=== PATIENT | female | born 1955 | race Two or more races ===

== ENCOUNTER 2018-06-20 17:41 | Emergency (ER) | payer SELFPAY ==
[~2018-06-20] VITALS: Ht 157.5 cm; Wt 92.1 kg
[2018-06-20 17:49] VITALS: BP 168/87
[2018-06-20] MEDS ORDERED: KETOROLAC TROMETH 60MG/2ML VIAL IM ONE (23:15)
== END 2018-06-20 23:34 | disposition home or self-care (01) ==
LOC: EDBD 17:41 → ER 17:47
DX: S13.9XXA Sprain of joints and ligaments of unspecified parts of neck, initial encounter (principal); E11.9 Type 2 diabetes mellitus without complications; I10 Essential (primary) hypertension; V43.62XA Car passenger injured in collision with other type car in traffic accident, initial encounter; Y93.89 Activity, other specified; Y99.8 Other external cause status; Y92.410 Unspecified street and highway as the place of occurrence of the external cause
CPT/HCPCS: 71046; 71250; 72040; 73502; 74176; 93005; 96372; 99284; J1885

== ENCOUNTER 2025-03-28 10:23 | Inpatient (IN) | payer MEDICAID ==
[~2025-03-28] VITALS: Ht 165.1 cm; Wt 86.7 kg
--- NOTE | 2025-03-28 10:51 | ED.PDOC ---
Erwin. trauma (HPI) HPI Comments 69 y/o F, OSITOA, presents to the ED for CC of s/p fall. EMS reports, patient is coming from home where she c/o right sided ankle, knee, and hip pain following a fall last night (03/27/25). Patient states, she was walking on wet floor when she slipped landing on he right side. Patient denies hitting her head, LOC, svetlana sea, or vomiting. No other symptoms or modifying factors present at this time. Chief Complaint: Lower Extremity Time Seen by MD: 10:45 Primary Care Provider: PATRICIA Reviewed notes: Nurses Notes, Medications, Allergies Allergies: Coded Allergies: NO KNOWN ALLERGIES (Unverified , 06/20/18) Information Source: Patient Mode of Arrival: EMS Severity: Moderate Timing: Hours Duration: Since onset Prehospital treatment: None Location: (R) Ankle, (R) Hip Location of laceration: None Mechanism: Fall Associated signs and symtoms: None Past Medical History PAST MEDICAL HISTORY: DM, HTN Surgical History: Denies all surgeries CELL LINER History: No Pertinent CELL LINER History Family History Family History: Unknown Social History Smoker: Non-Smoker Alcohol: Denies ETOH Use Drugs: Denies Drug Use Lives In: Home Constitutional: denies: chills, diaphoresis, fatigue, fever, malaise, sweats, weakness, others EENTM: denies: blurred vision, double vision, ear bleeding, ear discharge, ear drainage, ear pain, ear ringing, eye pain, eye redness, hearing loss, mouth pain, mouth swelling, nasal discharge, nose bleeding, nose congestion, nose pain, photophobia, tearing, throat pain, throat swelling, voice changes, others Respiratory: denies: cough, hemoptysis, orthopnea, SOB at rest, shortness of breath, SOB with excertion, stridor, wheezing, others Cardiovascular: denies: chest pain, dizzy spells, diaphoresis, Dyspnea on exertion, edema, irregular heart beat, left arm pain, lightheadedness, palpitations, PND, syncope, others Gastrointestinal: denies: abdomen distended, abdominal pain, blood streaked bowels, constipated, diarrhea, dysphagia, difficulty swallowing, hematemesis, melena, nausea, poor appetite, poor fluid intake, rectal bleeding, rectal pain, vomiting, others Genitourinary: denies: abnormal vagina bleeding, burning, dyspareunia, dysuria, flank pain, frequency, hematuria, incontinence, pain, , vagina discharge, urgency, others Neurological: denies: dizziness, fainting, headache, left sided numbness, left sided weakness, numbness, paresthesia, pre-existing deficit, right sided numbness, right sided weakness, seizure, speech problems, tingling, tremors, weakness, others Musculoskeletal: reports: others (right ankle, right knee, right hip pain); denies: back pain, gout, joint pain, joint swelling, muscle pain, muscle stiffness, neck pain Integumetry: denies: bruises, change in color, change in hair/nails, dryness, laceration, lesions, lumps, rash, wounds, others Allergic/Immunocompromised: denies: Difficulty Healing, Frequent Infections, Hives, Itching, others Hematologic/Lymphatic: denies: anemia, blood clots, easy bleeding, easy bruising, swollen glands, others Endocrine: denies: excessive hunger, excessive sweating, excessive thirst, excessive urination, flushing, intolerance to cold, intolerance to heat, unexplained weight gain, unexplained weight loss, others Psychiatric: denies: anxiety, bipolar disorder, depression, hopeless, panic disorder, schizophrenia, sleepless, suicidal, others All Other Systems: Reviewed and Negative Physical Exam General Appearance: Moderate Distress HEENT: Normal ENT Inspection, Pharynx Normal, TMs Normal Neck: Full Range of Motion, Non-Tender, Normal, Normal Inspection Respiratory: Chest Non-Tender, Lungs Clear, No Accessory Muscle Use, No Respiratory Distress, Normal Breath Sounds Cardiovascular: No Edema, No JVD, No Murmur, No Gallop, Normal Peripheral Pulses, Regular Rate/Rhythm Breast Exam: Deferred Gastrointestinal: No Organomegaly, Non Tender, No Pulsatile Mass, Normal Bowel Sounds, Soft Genitalia: Deferred Pelvic: Deferred Rectal: Deferred Extremities: Decreased range of motion Musculoskeletal : Apperance: Normal Neurologic: Alert, No Motor Deficits, No Sensory Deficits Cerebellar Function: NOT DONE Reflexes: NOT DONE Skin: Normal Color Peripheral Pulses: 3+ Radial (R), 3+ Radial (L) Lymphatic: No Adenopathy Was a procedure done? Was a procedure done?: No Differential Diagnosis Multiple Trauma: Fractures, Abrasions, Contusion Neck Injury: N/A X-Ray, Labs, Meds, VS Vital Signs Date Time Temp Pulse Resp B/P (MAP) Pulse Ox O2 Delivery O2 Flow Rate FiO2 03/28/25 10:30 98.6 78 22 169/76 (107) 98 98.6 Lab Test 03/28/25 11:52 Range/Units White Blood Count 11.0 H 4.4-10.8 10^3/uL Red Blood Count 4.88 4.0-5.20 10^6/uL Hemoglobin 14.1 12.2-16.2 g/dL Hematocrit 42.8 36.0-46.0 % Mean Corpuscular Volume 87.7 80.0-100.0 fL Mean Corpuscular Hemoglobin 28.8 28.0-32.0 pg Mean Corpuscular Hemoglobin Concent 32.8 32.0-36.0 g/dL Red Cell Distribution Width 13.5 11.8-14.3 % Platelet Count 303 140-450 10^3/uL Mean Platelet Volume 9.9 6.9-10.8 fL Neutrophils (%) (Auto) 70.6 37.0-80.0 % Lymphocytes (%) (Auto) 20.1 10.0-50.0 % Monocytes (%) (Auto) 6.7 0.0-12.0 % Eosinophils (%) (Auto) 1.7 0.0-7.0 % Basophils (%) (Auto) 0.9 0.0-2.0 % Neutrophils # (Auto) 7.8 1.6-8.6 10 ^3/uL Lymphocytes # (Auto) 2.2 0.4-5.4 10 ^3/uL Monocytes # (Auto) 0.7 0-1.3 10 ^3/uL Eosinophils # (Auto) 0.2 0-0.8 10 ^3/uL Basophils # (Auto) 0.1 0-0.2 10 ^3/uL Nucleated Red Blood Cells 0.0 % Sodium Level 139 136-145 mmol/L Potassium Level 3.9 3.5-5.1 mmol/L Chloride Level 104 98-107 mmol/L Carbon Dioxide Level 28 20-31 mmol/L Anion Gap 7 5-15 Blood Urea Nitrogen 15 9-23 mg/dL Creatinine 0.62 0.550-1.02 mg/dL Glomerular Filtration Rate Calc 98 >90 mL/min BUN/Creatinine Ratio 24.2 H 10.0-20.0 Serum Glucose 333 H 74-106 mg/dL Calcium Level 9.6 8.7-10.4 mg/dL Patient alert. Unable to bear weight. Status post fall. Vitals stable. Blood sugar elevated. Establish intravenous access. Was given fluids. Explained to the patient that she will be admitted. Physiotherapy. Continue monitoring. Time of 1ST Reevaluation: 11:15 Reevaluation 1ST: Unchanged Patient Education/Counseling: Diagnosis, Treatment Family Education/Counseling: No Family Present Departure 1 Departure Time of Disposition: 13:51 Impression: Primary Impression: Uncontrolled diabetes mellitus Qualified Codes: E13.65 - Other specified diabetes mellitus with hyperglycemia Additional Impression: Status post fall Disposition: ADMITTED INPATIENT Admit to: Med Surg Condition: Guarded Critical Care Note Critical Care Time?: No Stability Stability form required: No Heart Score Heart Score: Heart Score Response (Comments) Value History N/A 0 EKG N/A 0 Age N/A 0 Risk Factors N/A 0 Troponin N/A 0 Total 0 I personally scribed for MASON SIDDIQI MD ([email or web address]) on 03/28/25 at 10:51. Electronically submitted by Karen Aleman ([email or web address]). MASON SIDDIQI MD Mar 28, 2025 10:51
--- NOTE | 2025-03-28 11:57 | DVH ---
CLINICAL INDICATION: Trauma TECHNIQUE: 2 radiographic views of the left ankle were obtained. Comparison: None FINDINGS/IMPRESSION: Mildly displaced fracture of the distal fibula. Soft tissue swelling about the left ankle.
[2025-03-28 12:02] LABS: Hematocrit 42.8 % (36.0-46.0); Hemoglobin 14.1 g/dL (12.2-16.2); Mean Corpuscular Hemoglobin 28.8 pg (28.0-32.0); Mean Corpuscular Volume 87.7 fL (80.0-100.0); Nucleated Red Blood Cells % 0.0 %
[2025-03-28 12:10] LABS: Chloride 104 mmol/L (98-107); Potassium 3.9 mmol/L (3.5-5.1); Sodium 139 mmol/L (136-145)
[2025-03-28 12:11] LABS: Anion Gap 7 (5-15); Carbon Dioxide 28 mmol/L (20-31)
[2025-03-28 12:12] LABS: Calcium 9.6 mg/dL (8.7-10.4)
[2025-03-28 12:17] LABS: BUN/Creatinine Ratio 24.2 (10.0-20.0); Blood Urea Nitrogen 15 mg/dL (9-23); Glucose 333 mg/dL (74-106)
--- NOTE | 2025-03-28 15:25 | DVHHP2 ---
History of Present Illness Reason for Visit: Right ankle pain History of Present Illness 69-year-old female past medical history diabetes hypertension no surgical history chief complaint patient states she last CC for and landed on her right side now she complain of right ankle pain right knee pain and right hip pain. Patient was not able bear weight. She denies she denies any chest pain no no shortness a breath calf pain or leg swelling. Patient denies any dizziness prior to the fall here when evaluating patient's labs and imaging patient has a white count 11.0 glucose was elevated at 333 without DKA x-ray shows mildly displaced fracture of the distal tib fib. With these findings we will admit and ask for ortho evaluation her also add x-ray pending knee and hip the evaluate for fracture. We will admit for further workup Past Medical History Diabetes hypertension Past Surgical History Surgical history denies Family History Reviewed, non-contributory to the management of this case. Past Social History The patient lives at home, denies smoking, alcohol or illicit drugs abuse. Review of Systems Constitutional: No: Fever, Chills, Sweats, Weakness, Malaise, Other Eyes: No: Pain, Vision change, Conjunctivae inflammation, Eyelid inflammation, Other, Redness ENT: No: Ear pain, Ear discharge, Nose pain, Nose discharge, Nose congestion, Mouth pain, Mouth swelling, Throat pain, Throat swelling, Other Respiratory: No: Cough, Dry, Shortness of breath, SOB with excertion, Wheezing, Hemoptysis, Pleuritic Pain, Sputum, Wheezing, Other Cardiovascular: No: Chest Pain, Palpitations, Orthopnea, Paroxysmal Noc. Dyspnea, Edema, Lt Headedness, Other Gastrointestinal: No: Nausea, Vomiting, Abdominal Pain, Diarrhea, Constipation, Melena, Hematochezia, Other Genitourinary: No Dysuria, No Frequency, No Incontinence, No Hematuria, No Retention, No Other Musculoskeletal: other (Right hip pain and right knee pain), leg pain Skin: No: Rash, Lesions, Jaundice, Bruising, Other Neurological: No: Weakness, Numbness, Incoordination, Change in speech, Confusion, Seizures, Other Allergies: Coded Allergies: NO KNOWN ALLERGIES (Unverified , 06/20/18) Exam Vital Signs Vital Signs Date Time Temp Pulse Resp B/P (MAP) Pulse Ox O2 Delivery O2 Flow Rate FiO2 6/26/25 10:30 98.6 78 22 169/76 (107) 98 98.6 General Appearance: Alert, Oriented X3, Cooperative, No acute distress HEENT: Atraumatic, PERRLA, EOMI, Mucous membr. moist/pink Respiratory: Clear to auscultation, Normal air movement Cardiovascular: Regular rate, Normal S1, Normal S2, No murmurs Abdominal: Normal bowel sounds, Soft, No tenderness, No hepatospenomegaly, No masses Extremities: No clubbing, No cyanosis, Normal pulses, Other (Right lower extremity in his splint toes he is supposed mild swelling since toes but neurovascular intact positive wiggle no bruising noted in the knee or the hip limited exam patient is in his wheelchair) Skin: No rashes, No breakdown, No significant lesion Neuro: Other (Neuro nonfocal) Psych/Mental Status: Mental status NL, Mood NL Labs/Xrays X-ray mildly displaced fracture of the distal tib-fib I reviewed labs, imaging CT scan abdomen pelvis, EKG and all diagnostic studies on this patient from ED records and the medical chart Labs Test 03/28/25 11:52 Range/Units White Blood Count 11.0 H 4.4-10.8 10^3/uL Red Blood Count 4.88 4.0-5.20 10^6/uL Hemoglobin 14.1 12.2-16.2 g/dL Hematocrit 42.8 36.0-46.0 % Mean Corpuscular Volume 87.7 80.0-100.0 fL Mean Corpuscular Hemoglobin 28.8 28.0-32.0 pg Mean Corpuscular Hemoglobin Concent 32.8 32.0-36.0 g/dL Red Cell Distribution Width 13.5 11.8-14.3 % Platelet Count 303 140-450 10^3/uL Mean Platelet Volume 9.9 6.9-10.8 fL Neutrophils (%) (Auto) 70.6 37.0-80.0 % Lymphocytes (%) (Auto) 20.1 10.0-50.0 % Monocytes (%) (Auto) 6.7 0.0-12.0 % Eosinophils (%) (Auto) 1.7 0.0-7.0 % Basophils (%) (Auto) 0.9 0.0-2.0 % Neutrophils # (Auto) 7.8 1.6-8.6 10 ^3/uL Lymphocytes # (Auto) 2.2 0.4-5.4 10 ^3/uL Monocytes # (Auto) 0.7 0-1.3 10 ^3/uL Eosinophils # (Auto) 0.2 0-0.8 10 ^3/uL Basophils # (Auto) 0.1 0-0.2 10 ^3/uL Nucleated Red Blood Cells 0.0 % Sodium Level 139 136-145 mmol/L Potassium Level 3.9 3.5-5.1 mmol/L Chloride Level 104 98-107 mmol/L Carbon Dioxide Level 28 20-31 mmol/L Anion Gap 7 5-15 Blood Urea Nitrogen 15 9-23 mg/dL Creatinine 0.62 0.550-1.02 mg/dL Glomerular Filtration Rate Calc 98 >90 mL/min BUN/Creatinine Ratio 24.2 H 10.0-20.0 Serum Glucose 333 H 74-106 mg/dL Calcium Level 9.6 8.7-10.4 mg/dL Assessment/Plan Assessment/Plan s/p mechanical fall acute mildly displaced fracture of distal fib closed found on imaging Ortho consult follow-up recs ordered Morphine as needed for pain bed rest ordered lovenox for now since bed ridden Monitor for circulation compromise fall precautions cxr for preop clearance and ekg ordered type and screen and pt/inr for pre op Order x-ray of the right knee and hip follow up results chronic problems Uncontrolled benign essential hypertension dm ISS fen/ppx diet for now ivf no gi ppx since no hx of gerds or gi bleed lovenox for now scd plan admit to medicine ortho consult fu recs Plan discussed with: Patient Date of Service: Mar 28, 2025 Billing Provider: ROSALIE ANDRADE DNP Common Visit Codes: [id number] INP/OBS CARE (HIGH) ROSALIE ANDRADE DNP Mar 28, 2025 15:25
[2025-03-28] MEDS ORDERED: NITROGLYCERIN 0.4 MG SL TAB SL PRN (15:45)
[2025-03-28] MEDS: SODIUM CHLORIDE 0.9% 1,000 ML IV ONE (18:39)
[2025-03-28 18:45] VITALS: PULSE 95; RESP 15; O2SAT 97
[2025-03-28 19:30] VITALS: O2SAT 97
[2025-03-28] MEDS: SODIUM CHLORIDE 0.9% 1,000 ML IV SCH (19:39)
[2025-03-28] MEDS: ONDANSETRON HCL 4 MG/2 ML VIAL IV PRN (21:11)
[2025-03-28] MEDS: MORPHINE SULFATE INJ 2 MG/ml SYRG IV PRN (21:12)
--- NOTE | 2025-03-28 21:33 | DVH ---
CLINICAL INDICATION: eval for fx and dislocation TECHNIQUE: XY R HIP COMPLETE XRAY Comparison: None FINDINGS/IMPRESSION: : There is no evidence of acute fracture or dislocation. Moderate degenerative narrowing of the bilateral hips. Overlying soft tissues are intact. Visualized bowel gas is nonobstructed.
[2025-03-28] MEDS: HYDROcodone-ACET 5/325MG TAB ONE (22:37)
[2025-03-28] MEDS: HYDROcodone-ACET 5/325MG TAB PO PRN (22:46)
[2025-03-28] MEDS: MORPHINE SULFATE INJ 2 MG/ml SYRG IV ONE (23:00)
[2025-03-28] MEDS: MORPHINE SULFATE INJ 2 MG/ml SYRG ONE (23:05)
[2025-03-28 23:21] VITALS: PULSE 73; RESP 17; O2SAT 95
[2025-03-28 23:28] VITALS: BP 174/78; PULSE 25; PULSE 73; RESP 17; TEMP 98.6; O2SAT 73; O2SAT 95
[2025-03-28 23:47] VITALS: BP 174/78; PULSE 76; RESP 18; TEMP 98.6; O2SAT 97
[2025-03-29] VITALS (7 sets, daily range): BP systolic 131–181; BP diastolic 69–87; PULSE 80–96; RESP 17–20; TEMP 98.5–100; O2SAT 93–95
[2025-03-29 00:32] LABS: Urine Protein, UAD Negative (Negative)
[2025-03-29] MEDS: hydrALAZINE HCL 20 MG/ML VL IV PRN (01:21)
[2025-03-29] MEDS: hydrALAZINE HCL 20 MG/ML VL ONE (01:34)
[2025-03-29 07:26] LABS: Hematocrit 43.0 % (36.0-46.0); Hemoglobin 14.3 g/dL (12.2-16.2); Mean Corpuscular Hemoglobin 29.2 pg (28.0-32.0); Mean Corpuscular Volume 87.7 fL (80.0-100.0); Nucleated Red Blood Cells % 0.0 %
[2025-03-29 07:43] LABS: Alanine Aminotransferase 20 U/L (7-40); Albumin 3.8 g/dL (3.2-4.8); Anion Gap 9 (5-15); BUN/Creatinine Ratio 20.8 (10.0-20.0); Blood Urea Nitrogen 11 mg/dL (9-23); Calcium 9.0 mg/dL (8.7-10.4); Carbon Dioxide 24 mmol/L (20-31); Chloride 104 mmol/L (98-107); Potassium 3.7 mmol/L (3.5-5.1); Sodium 137 mmol/L (136-145); Total Protein 6.4 g/dL (5.7-8.2)
[2025-03-29 07:44] LABS: Bilirubin, Total 0.6 mg/dL (0.2-1.0)
[2025-03-29 07:46] LABS: Alkaline Phosphatase 171 U/L (46-116); Glucose 292 mg/dL (74-106)
[2025-03-29] MEDS: ENOXAPARIN SOD 40 MG/0.4 ML SYRINGE SC SCH (09:01)
[2025-03-29 10:36] LABS: Hepatitis B Surface Antigen Negative (Negative); Hepatitis C Antibody Negative (Negative)
[2025-03-29] MEDS ORDERED: ACETAMINOPHEN 325 MG TAB PO PRN (17:30)
--- NOTE | 2025-03-29 17:35 | DVHPN2 ---
Reviewed: Care Plan, H&P, Labs, Medications, Previous Orders, Radiology Changes from previous H/P or p: No Changes General: Per HPI Eyes: No Pain, No Vision change, No Conjunctivae inflammation, No Eyelid inflammation, No Other, No Redness ENT: No Ear pain, No Ear discharge, No Nose pain, No Nose discharge, No Nose congestion, No Mouth pain, No Mouth swelling, No Throat pain, No Throat swelling, No Other Cardiovascular: No Chest Pain, No Palpitations, No Orthopnea, No Paroxysmal Noc. Dyspnea, No Edema, No Lt Headedness, No Other Respiratory: No Cough, No Dry, No Shortness of breath, No SOB with excertion, No Wheezing, No Hemoptysis, No Pleuritic Pain, No Sputum, No Other Gastrointestinal: No Nausea, No Vomiting, No Abdominal Pain, No Diarrhea, No Constipation, No Melena, No Hematochezia, No Other Genitourinary: No Dysuria, No Frequency, No Incontinence, No Hematuria, No Retention, No Other Musculoskeletal: other (Right hip pain and right knee pain), leg pain Skin: No Rash, No Lesions, No Jaundice, No Bruising, No Other Objective Vitals Vital Signs Date Time Temp Pulse Resp B/P (MAP) Pulse Ox O2 Delivery O2 Flow Rate FiO2 03/29/25 17:00 100.0 96 19 178/87 (117) 94 100.0 03/29/25 08:00 Room Air* 0 21 Intake/Output Intake and Output 03/29/25 07:00 Intake Total 1410 ml Output Total 800 ml Balance 610 ml Intake Oral 200 ml IV Total 1210 ml Output Urine Total 800 ml General Appearance: Alert, Oriented X3, Cooperative, No acute distress HEENT: Atraumatic Cardiovascular: Regular rate, Normal S1, Normal S2 Abdomen: Normal bowel sounds, Soft Neuro: Normal speech Medications Current Medications Medications Dose Ordered Sig/Jose Route Start Time Stop Time Status Last Admin Dose Admin Sodium Chloride 1,000 ml @ 70 mls/hr [id number] IV 03/28/25 15:45 03/28/25 19:39 70 MLS/HR Ondansetron HCl 4 mg Q4HP PRN IV 03/28/25 15:45 03/28/25 21:11 4 MG Docusate Sodium 100 mg BIDPRN PRN PO 03/28/25 15:45 Enoxaparin Sodium 40 mg DAILY SC 03/29/25 10:00 03/29/25 09:01 40 MG Nitroglycerin 0.4 mg Q5MINP PRN SL 03/28/25 15:45 Acetaminophen/ Hydrocodone Bitart 1 tab Q6HPRN PRN PO 03/28/25 22:30 03/29/25 10:07 1 TAB Hydralazine HCl 10 mg Q6HP PRN IV 03/29/25 01:00 03/29/25 01:21 10 MG Acetaminophen 650 mg Q6HP PRN PO 03/29/25 17:30 UNV Hydromorphone HCl 0.5 mg Q2HPRN PRN IV 03/29/25 17:30 UNV Morphine Sulfate 2 mg Q4HPRN PRN IV 03/29/25 17:30 UNV Laboratory Results Laboratory Tests 03/29/25 06:56 Chemistry Test 03/29/25 06:56 Albumin 3.8 g/dL (3.2-4.8) Calcium Level 9.0 mg/dL (8.7-10.4) Total Protein 6.4 g/dL (5.7-8.2) LFT Test 03/29/25 06:56 Alanine Aminotransferase (ALT) 20 U/L (7-40) Alkaline Phosphatase 171 U/L (46-116) H Aspartate Amino Transferase (AST) 15 U/L (<34) Total Bilirubin 0.6 mg/dL (0.2-1.0) Urinalysis Test 03/28/25 21:00 Urine Color Colorless (Yellow) Urine Clarity Clear (Clear) Urine pH 6.5 (5.0-9.0) Urine Specific [place] 1.020 (1.001-1.035) Urine Protein Negative (Negative) Urine Ketones Trace (Negative) H Urine Blood Negative /uL (Negative) Urine Nitrite 2+ (Negative) H Urine Bilirubin Negative (Negative) Urine Urobilinogen Normal mg/dL (Negative) Urine Leukocyte Esterase Negative /uL (Negative) Urine RBC 1 /hpf (0 - 4) Urine Microscopic WBC 1 /HPF (0-5) Urine Squamous Epithelial Cells None seen /hpf (<5) Urine Bacteria Mod /hpf (None Seen) H Urine Hyaline Casts Few /lpf (0 - 2) Urine Glucose 4+ mg/dL (Normal) H Labs and/or images reviewed: Labs reviewed by me, Image(s) reviewed by me Assessment/Plan Assessment/Plan 69-year-old female past medical history diabetes hypertension no surgical history chief complaint patient states she last CC for and landed on her right side now she complain of right ankle pain right knee pain and right hip pain. Patient was not able bear weight. She denies she denies any chest pain no no shortness a breath calf pain or leg swelling. s/p mechanical fall acute mildly displaced fracture of distal fib closed Uncontrolled benign essential hypertension dm pending PT eval and SNF Plan discussed with: Patient My Orders Orders - CHI CAMPUZANO DO Procedure Category Date Status Time Acetaminophen Tablet PHA 03/29/25 Logged (Tylenol Tablet) 17:30 Hydromorphone PHA 03/29/25 Logged Injection (Dilaudid 17:30 Morphine Sulfate PHA 03/29/25 Logged Injection 17:30 Date of Service: Mar 29, 2025 Billing Provider: CHI CAMPUZANO DO Common Visit Codes: [id number] INP/OBS CARE(HIGH) CHI CAMPUZANO DO Mar 29, 2025 17:35
[2025-03-29] MEDS: MORPHINE SULFATE INJ 2 MG/ml SYRG IV PRN (20:10)
[2025-03-30] VITALS (8 sets, daily range): BP systolic 136–177; BP diastolic 70–91; PULSE 90–99; RESP 16–20; TEMP 97.3–99.9; O2SAT 93–95
[2025-03-30] MEDS: HYDROmorphone HCL 2 MG/ML VL/or syr IV PRN ×2 (00:33→18:25)
[2025-03-30] MEDS: cefTRIAXone 1GM/50ML D5W 50 ML IV SCH (08:59)
[2025-03-30] MEDS ORDERED: MORPHINE SULFATE INJ 2 MG/ml SYRG IV PRN (13:00)
[2025-03-30] MEDS ORDERED: ACETAMINOPHEN 325 MG TAB PO PRN (13:00)
[2025-03-30] MEDS: OXYCODONE W/ ACETAMINOPHEN 5/325MG TABLET PO PRN (13:24)
[2025-03-30] MEDS ORDERED: TIRZ5INJ SC (13:48)
[2025-03-30] MEDS ORDERED: IBUP-1456 PO (13:48)
[2025-03-30] MEDS ORDERED: AMLO1TAB22 PO (13:48)
[2025-03-30] MEDS ORDERED: LISI10TA34 PO (13:48)
[2025-03-30] MEDS ORDERED: INDA2.5T PO (13:48)
--- NOTE | 2025-03-30 15:21 | DVH ---
CLINICAL INDICATION: Right knee pain TECHNIQUE: XY R KNEE 2V XRAY Comparison: None FINDINGS/IMPRESSION: : There is no evidence of acute fracture or dislocation. There is slight lateral subluxation of the proximal tibia relative to the femur likely degenerative. There is mild tricompartment osteoarthritis with tricompartment osteophyte formation. Joint spaces p reserved. There is medial and lateral compartment chondrocalcinosis. Suprapatellar knee joint effusion.
[2025-03-31] VITALS (7 sets, daily range): BP systolic 132–163; BP diastolic 68–89; PULSE 85–107; RESP 16–20; TEMP 97.5–99.6; O2SAT 93–97
[2025-04-01] VITALS (7 sets, daily range): BP systolic 110–162; BP diastolic 66–77; PULSE 79–112; RESP 16–18; TEMP 97.6–100.2; O2SAT 94–99
--- NOTE | 2025-04-01 07:09 | DVHINCON2 ---
Date of service: Apr 01, 2025 Reason for Consultation Right distal fibula fracture History of Present Illness 69 yo F sp mechanical fall with twisting injury at right ankle. Immediate pain/ swelling/inability to bear weight on right leg. No cp/sob/abd pain. hx of uncontrolled DM Past Medical History Diabetes hypertension Family History: Diabetes mellitus G8 MOTHER FH: heart attack G8 FATHER High blood pressure G8 MOTHER Allergies: Coded Allergies: NO KNOWN ALLERGIES (Unverified , 06/20/18) Home Meds Reported Medications Amlodipine Besylate (Amlodipine Besylate) 5 Mg Tab, 10 MG PO DAILY for 30 Days, MG 03/30/25 Indapamide (Indapamide) 2.5 Mg Tab, 2.5 MG PO AC, TAB 03/30/25 Lisinopril (Lisinopril) 10 Mg Tab, 10 MG PO DAILY for 30 Days, MG 03/30/25 Ibuprofen (Ibuprofen) 800 Mg Tab, 800 MG PO Q8HP, MG 03/30/25 Tirzepatide (Mounjaro) 5 Mg/0.5 Ml Inj, 5 MG SC, INJ 03/30/25 Review of Systems 10 point ROS is neg except per HPI Vital Signs Vital Signs Date Time Temp Pulse Resp B/P (MAP) Pulse Ox O2 Delivery O2 Flow Rate FiO2 04/01/25 05:00 97.6 80 18 110/66 (81) 95 97.6 03/31/25 20:00 Room Air* 0 21 Physical Exam NAD RLE: +swelling at ankle +ehl/fhl foot wwp Labs/Diagnostic Data Labs Test 03/29/25 06:56 03/28/25 21:00 Range/Units White Blood Count 13.2 H 4.4-10.8 10^3/uL Red Blood Count 4.90 4.0-5.20 10^6/uL Hemoglobin 14.3 12.2-16.2 g/dL Hematocrit 43.0 36.0-46.0 % Mean Corpuscular Volume 87.7 80.0-100.0 fL Mean Corpuscular Hemoglobin 29.2 28.0-32.0 pg Mean Corpuscular Hemoglobin Concent 33.3 32.0-36.0 g/dL Red Cell Distribution Width 13.6 11.8-14.3 % Platelet Count 274 140-450 10^3/uL Mean Platelet Volume 10.3 6.9-10.8 fL Neutrophils (%) (Auto) 78.1 37.0-80.0 % Lymphocytes (%) (Auto) 14.6 10.0-50.0 % Monocytes (%) (Auto) 6.5 0.0-12.0 % Eosinophils (%) (Auto) 0.3 0.0-7.0 % Basophils (%) (Auto) 0.5 0.0-2.0 % Neutrophils # (Auto) 10.3 H 1.6-8.6 10 ^3/uL Lymphocytes # (Auto) 1.9 0.4-5.4 10 ^3/uL Monocytes # (Auto) 0.9 0-1.3 10 ^3/uL Eosinophils # (Auto) 0 0-0.8 10 ^3/uL Basophils # (Auto) 0.1 0-0.2 10 ^3/uL Nucleated Red Blood Cells 0.0 % Sodium Level 137 136-145 mmol/L Potassium Level 3.7 3.5-5.1 mmol/L Chloride Level 104 98-107 mmol/L Carbon Dioxide Level 24 20-31 mmol/L Anion Gap 9 5-15 Blood Urea Nitrogen 11 9-23 mg/dL Creatinine 0.53 L 0.550-1.02 mg/dL Glomerular Filtration Rate Calc 101 >90 mL/min BUN/Creatinine Ratio 20.8 H 10.0-20.0 Serum Glucose 292 H 74-106 mg/dL Calcium Level 9.0 8.7-10.4 mg/dL Total Bilirubin 0.6 0.2-1.0 mg/dL Aspartate Amino Transferase (AST) 15 <34 U/L Alanine Aminotransferase (ALT) 20 7-40 U/L Alkaline Phosphatase 171 H 46-116 U/L Total Protein 6.4 5.7-8.2 g/dL Albumin 3.8 3.2-4.8 g/dL Hepatitis B Surface Antigen Negative Negative Hepatitis C Antibody Negative Negative Urine Color Colorless Yellow Urine Clarity Clear Clear Urine pH 6.5 5.0-9.0 Urine Specific [place] 1.020 1.001-1.035 Urine Protein Negative Negative Urine Ketones Trace H Negative Urine Blood Negative Negative /uL Urine Nitrite 2+ H Negative Urine Bilirubin Negative Negative Urine Urobilinogen Normal Negative mg/dL Urine Leukocyte Esterase Negative Negative /uL Urine RBC 1 0 - 4 /hpf Urine Microscopic WBC 1 0-5 /HPF Urine Squamous Epithelial Cells None seen <5 /hpf Urine Bacteria Mod H None Seen /hpf Urine Hyaline Casts Few 0 - 2 /lpf Urine Glucose 4+ H Normal mg/dL Plan/Recommendation 69 yo F with right distal fibula fracture 1. We can continue with protected weight bearing and conservative management 2. Right leg splint x 1-2 weeks 3. fu in [facility] ortho clinic in 1-2 weeks for cast placement 4. pain control 5. NWB RLE 6. physical therapy Plan discussed with: Patient, Other CARMEN WHITE MD Apr 01, 2025 07:09
--- NOTE | 2025-04-01 14:40 | DVHPN2 ---
Reviewed: Care Plan, H&P, Labs, Medications, Previous Orders, Radiology Changes from previous H/P or p: No Changes General: Per HPI Eyes: No Pain, No Vision change, No Conjunctivae inflammation, No Eyelid inflammation, No Other, No Redness ENT: No Ear pain, No Ear discharge, No Nose pain, No Nose discharge, No Nose congestion, No Mouth pain, No Mouth swelling, No Throat pain, No Throat swelling, No Other Cardiovascular: No Chest Pain, No Palpitations, No Orthopnea, No Paroxysmal Noc. Dyspnea, No Edema, No Lt Headedness, No Other Respiratory: No Cough, No Dry, No Shortness of breath, No SOB with excertion, No Wheezing, No Hemoptysis, No Pleuritic Pain, No Sputum, No Other Gastrointestinal: No Nausea, No Vomiting, No Abdominal Pain, No Diarrhea, No Constipation, No Melena, No Hematochezia, No Other Genitourinary: No Dysuria, No Frequency, No Incontinence, No Hematuria, No Retention, No Other Musculoskeletal: other (Right hip pain and right knee pain), leg pain Skin: No Rash, No Lesions, No Jaundice, No Bruising, No Other Objective Vitals Vital Signs Date Time Temp Pulse Resp B/P (MAP) Pulse Ox O2 Delivery O2 Flow Rate FiO2 04/01/25 12:42 88 18 156/84 04/01/25 08:00 Room Air* 0 21 04/01/25 05:00 97.6 95 97.6 Intake/Output Intake and Output 04/01/25 07:00 Intake Total 1020 ml Output Total 900 ml Balance 120 ml Intake Oral 970 ml IV Total 50 ml Output Urine Total 900 ml # Voids 5 General Appearance: Alert, Oriented X3, Cooperative, No acute distress HEENT: Atraumatic Cardiovascular: Regular rate, Normal S1, Normal S2 Abdomen: Normal bowel sounds, Soft Neuro: Normal speech Medications Current Medications Medications Dose Ordered Sig/Jose Route Start Time Stop Time Status Last Admin Dose Admin Sodium Chloride 1,000 ml @ 70 mls/hr [id number] IV 03/28/25 15:45 04/01/25 05:11 70 MLS/HR Ondansetron HCl 4 mg Q4HP PRN IV 03/28/25 15:45 03/29/25 20:07 4 MG Docusate Sodium 100 mg BIDPRN PRN PO 03/28/25 15:45 Enoxaparin Sodium 40 mg DAILY SC 03/29/25 10:00 04/01/25 07:59 40 MG Nitroglycerin 0.4 mg Q5MINP PRN SL 03/28/25 15:45 Hydralazine HCl 10 mg Q6HP PRN IV 03/29/25 01:00 04/01/25 09:39 10 MG Ceftriaxone Sodium 50 ml @ 100 mls/hr DAILY@09 IV 03/30/25 09:00 04/01/25 07:59 100 MLS/HR Hydromorphone HCl 1 mg Q2HPRN PRN IV 03/30/25 13:00 04/01/25 12:42 1 MG Morphine Sulfate 4 mg Q4HPRN PRN IV 03/30/25 13:00 Oxycodone/ Acetaminophen 2 tab Q8HP PRN PO 03/30/25 13:00 04/01/25 10:21 2 TAB Acetaminophen 650 mg Q6HP PRN PO 03/30/25 13:00 Laboratory Results Laboratory Tests 03/29/25 06:56 Urinalysis Test 03/28/25 21:00 Urine Color Colorless (Yellow) Urine Clarity Clear (Clear) Urine pH 6.5 (5.0-9.0) Urine Specific [place] 1.020 (1.001-1.035) Urine Protein Negative (Negative) Urine Ketones Trace (Negative) H Urine Blood Negative /uL (Negative) Urine Nitrite 2+ (Negative) H Urine Bilirubin Negative (Negative) Urine Urobilinogen Normal mg/dL (Negative) Urine Leukocyte Esterase Negative /uL (Negative) Urine RBC 1 /hpf (0 - 4) Urine Microscopic WBC 1 /HPF (0-5) Urine Squamous Epithelial Cells None seen /hpf (<5) Urine Bacteria Mod /hpf (None Seen) H Urine Hyaline Casts Few /lpf (0 - 2) Urine Glucose 4+ mg/dL (Normal) H Assessment/Plan Assessment/Plan 69-year-old female past medical history diabetes hypertension no surgical history chief complaint patient states she last CC for and landed on her right side now she complain of right ankle pain right knee pain and right hip pain. Patient was not able bear weight. She denies she denies any chest pain no no shortness a breath calf pain or leg swelling. s/p mechanical fall acute mildly displaced fracture of distal fib closed Uncontrolled benign essential hypertension dm pending PT eval and SNF Plan discussed with: Patient My Orders Orders - CHI CAMPUZANO DO Procedure Category Date Status Time Glucose Blood PHA 04/01/25 Transmitted (Accu-Chek Comfort 18:00 Moderate Insulin Ss PHA 04/01/25 Transmitted 18:00 Dextrose 50% Syringe PHA 04/01/25 Transmitted 14:45 Date of Service: Mar 30, 2025 Billing Provider: CHI CAMPUZANO DO Common Visit Codes: [id number] INP/OBS CARE(HIGH) CHI CAMPUZANO DO Apr 01, 2025 14:40
--- NOTE | 2025-04-01 14:41 | DVHPN2 ---
Reviewed: Care Plan, H&P, Labs, Medications, Previous Orders, Radiology Changes from previous H/P or p: No Changes General: Per HPI Eyes: No Pain, No Vision change, No Conjunctivae inflammation, No Eyelid inflammation, No Other, No Redness ENT: No Ear pain, No Ear discharge, No Nose pain, No Nose discharge, No Nose congestion, No Mouth pain, No Mouth swelling, No Throat pain, No Throat swelling, No Other Cardiovascular: No Chest Pain, No Palpitations, No Orthopnea, No Paroxysmal Noc. Dyspnea, No Edema, No Lt Headedness, No Other Respiratory: No Cough, No Dry, No Shortness of breath, No SOB with excertion, No Wheezing, No Hemoptysis, No Pleuritic Pain, No Sputum, No Other Gastrointestinal: No Nausea, No Vomiting, No Abdominal Pain, No Diarrhea, No Constipation, No Melena, No Hematochezia, No Other Genitourinary: No Dysuria, No Frequency, No Incontinence, No Hematuria, No Retention, No Other Musculoskeletal: other (Right hip pain and right knee pain), leg pain Skin: No Rash, No Lesions, No Jaundice, No Bruising, No Other Objective Vitals Vital Signs Date Time Temp Pulse Resp B/P (MAP) Pulse Ox O2 Delivery O2 Flow Rate FiO2 04/01/25 12:42 88 18 156/84 04/01/25 08:00 Room Air* 0 21 04/01/25 05:00 97.6 95 97.6 Intake/Output Intake and Output 04/01/25 07:00 Intake Total 1020 ml Output Total 900 ml Balance 120 ml Intake Oral 970 ml IV Total 50 ml Output Urine Total 900 ml # Voids 5 General Appearance: Alert, Oriented X3, Cooperative, No acute distress HEENT: Atraumatic Cardiovascular: Regular rate, Normal S1, Normal S2 Abdomen: Normal bowel sounds, Soft Neuro: Normal speech Medications Current Medications Medications Dose Ordered Sig/Jose Route Start Time Stop Time Status Last Admin Dose Admin Sodium Chloride 1,000 ml @ 70 mls/hr [id number] IV 03/28/25 15:45 04/01/25 05:11 70 MLS/HR Ondansetron HCl 4 mg Q4HP PRN IV 03/28/25 15:45 03/29/25 20:07 4 MG Docusate Sodium 100 mg BIDPRN PRN PO 03/28/25 15:45 Enoxaparin Sodium 40 mg DAILY SC 03/29/25 10:00 04/01/25 07:59 40 MG Nitroglycerin 0.4 mg Q5MINP PRN SL 03/28/25 15:45 Hydralazine HCl 10 mg Q6HP PRN IV 03/29/25 01:00 04/01/25 09:39 10 MG Ceftriaxone Sodium 50 ml @ 100 mls/hr DAILY@09 IV 03/30/25 09:00 04/01/25 07:59 100 MLS/HR Hydromorphone HCl 1 mg Q2HPRN PRN IV 03/30/25 13:00 04/01/25 12:42 1 MG Morphine Sulfate 4 mg Q4HPRN PRN IV 03/30/25 13:00 Oxycodone/ Acetaminophen 2 tab Q8HP PRN PO 03/30/25 13:00 04/01/25 10:21 2 TAB Acetaminophen 650 mg Q6HP PRN PO 03/30/25 13:00 Laboratory Results Laboratory Tests 03/29/25 06:56 Urinalysis Test 03/28/25 21:00 Urine Color Colorless (Yellow) Urine Clarity Clear (Clear) Urine pH 6.5 (5.0-9.0) Urine Specific [place] 1.020 (1.001-1.035) Urine Protein Negative (Negative) Urine Ketones Trace (Negative) H Urine Blood Negative /uL (Negative) Urine Nitrite 2+ (Negative) H Urine Bilirubin Negative (Negative) Urine Urobilinogen Normal mg/dL (Negative) Urine Leukocyte Esterase Negative /uL (Negative) Urine RBC 1 /hpf (0 - 4) Urine Microscopic WBC 1 /HPF (0-5) Urine Squamous Epithelial Cells None seen /hpf (<5) Urine Bacteria Mod /hpf (None Seen) H Urine Hyaline Casts Few /lpf (0 - 2) Urine Glucose 4+ mg/dL (Normal) H Assessment/Plan Assessment/Plan 69-year-old female past medical history diabetes hypertension no surgical history chief complaint patient states she last CC for and landed on her right side now she complain of right ankle pain right knee pain and right hip pain. Patient was not able bear weight. She denies she denies any chest pain no no shortness a breath calf pain or leg swelling. s/p mechanical fall acute mildly displaced fracture of distal fib closed Uncontrolled benign essential hypertension dm ISS Plan discussed with: Patient My Orders Orders - CHI CAMPUZANO DO Procedure Category Date Status Time Glucose Blood PHA 04/01/25 Transmitted (Accu-Chek Comfort 18:00 Moderate Insulin Ss PHA 04/01/25 Transmitted 18:00 Dextrose 50% Syringe PHA 04/01/25 Transmitted 14:45 Date of Service: Mar 31, 2025 Billing Provider: CHI CAMPUZANO DO Common Visit Codes: [id number] INP/OBS CARE(HIGH) CHI CAMPUZANO DO Apr 01, 2025 14:41
[2025-04-01] MEDS ORDERED: DEXTROSE (50%) 50ML SYRG IV PRN (14:45)
[2025-04-01] MEDS: InsuLIN REG 1unit/0.01ml Soln (100units/ml) SC SCH (17:08)
[2025-04-01] MEDS: ACCU-CHEK COMFORT CURVE STRIP VI SCH (18:06)
[2025-04-02] VITALS (7 sets, daily range): BP systolic 111–153; BP diastolic 65–83; PULSE 89–106; RESP 17–19; TEMP 97.9–99.7; O2SAT 95–98
--- NOTE | 2025-04-02 19:08 | DVHPN2 ---
Subjective Seen in bed today Reviewed: Care Plan, H&P, Labs, Medications, Previous Orders, Radiology Changes from previous H/P or p: No Changes General: Per HPI Eyes: No Pain, No Vision change, No Conjunctivae inflammation, No Eyelid inflammation, No Other, No Redness ENT: No Ear pain, No Ear discharge, No Nose pain, No Nose discharge, No Nose congestion, No Mouth pain, No Mouth swelling, No Throat pain, No Throat swelling, No Other Cardiovascular: No Chest Pain, No Palpitations, No Orthopnea, No Paroxysmal Noc. Dyspnea, No Edema, No Lt Headedness, No Other Respiratory: No Cough, No Dry, No Shortness of breath, No SOB with excertion, No Wheezing, No Hemoptysis, No Pleuritic Pain, No Sputum, No Other Gastrointestinal: No Nausea, No Vomiting, No Abdominal Pain, No Diarrhea, No Constipation, No Melena, No Hematochezia, No Other Genitourinary: No Dysuria, No Frequency, No Incontinence, No Hematuria, No Retention, No Other Musculoskeletal: other (Right hip pain and right knee pain), leg pain Skin: No Rash, No Lesions, No Jaundice, No Bruising, No Other Objective Vitals Vital Signs Date Time Temp Pulse Resp B/P (MAP) Pulse Ox O2 Delivery O2 Flow Rate FiO2 04/02/25 17:00 97.9 97 18 139/72 (94) 96 97.9 04/02/25 08:00 Room Air* 0 21 Intake/Output Intake and Output 04/02/25 06:59 Intake Total 2039 ml Output Total 4200 ml Balance -2161 ml Intake Oral 1289 ml IV Total 750 ml Output Urine Total 4200 ml # Voids 7 General Appearance: Alert, Oriented X3, Cooperative, No acute distress HEENT: Atraumatic Cardiovascular: Regular rate, Normal S1, Normal S2 Abdomen: Normal bowel sounds, Soft Neuro: Normal speech Medications Current Medications Medications Dose Ordered Sig/Jose Route Start Time Stop Time Status Last Admin Dose Admin Sodium Chloride 1,000 ml @ 70 mls/hr [id number] IV 03/28/25 15:45 04/02/25 10:09 70 MLS/HR Ondansetron HCl 4 mg Q4HP PRN IV 03/28/25 15:45 03/29/25 20:07 4 MG Docusate Sodium 100 mg BIDPRN PRN PO 03/28/25 15:45 Enoxaparin Sodium 40 mg DAILY SC 03/29/25 10:00 04/02/25 07:45 40 MG Nitroglycerin 0.4 mg Q5MINP PRN SL 03/28/25 15:45 Hydralazine HCl 10 mg Q6HP PRN IV 03/29/25 01:00 04/02/25 04:45 10 MG Ceftriaxone Sodium 50 ml @ 100 mls/hr DAILY@09 IV 03/30/25 09:00 04/02/25 07:45 100 MLS/HR Hydromorphone HCl 1 mg Q2HPRN PRN IV 03/30/25 13:00 04/02/25 15:03 1 MG Morphine Sulfate 4 mg Q4HPRN PRN IV 03/30/25 13:00 Oxycodone/ Acetaminophen 2 tab Q8HP PRN PO 03/30/25 13:00 04/02/25 07:46 2 TAB Acetaminophen 650 mg Q6HP PRN PO 03/30/25 13:00 Diagnostic Test (Pha) 1 strip Q6HR 04/01/25 18:00 04/02/25 18:00 1 STRIP Insulin Human Regular Q6HR SC 04/01/25 18:00 04/02/25 18:00 6 UNITS Dextrose 50 ml UD PRN IV 04/01/25 14:45 Laboratory Results Laboratory Tests 03/29/25 06:56 Urinalysis Test 03/28/25 21:00 Urine Color Colorless (Yellow) Urine Clarity Clear (Clear) Urine pH 6.5 (5.0-9.0) Urine Specific [place] 1.020 (1.001-1.035) Urine Protein Negative (Negative) Urine Ketones Trace (Negative) H Urine Blood Negative /uL (Negative) Urine Nitrite 2+ (Negative) H Urine Bilirubin Negative (Negative) Urine Urobilinogen Normal mg/dL (Negative) Urine Leukocyte Esterase Negative /uL (Negative) Urine RBC 1 /hpf (0 - 4) Urine Microscopic WBC 1 /HPF (0-5) Urine Squamous Epithelial Cells None seen /hpf (<5) Urine Bacteria Mod /hpf (None Seen) H Urine Hyaline Casts Few /lpf (0 - 2) Urine Glucose 4+ mg/dL (Normal) H Assessment/Plan Assessment/Plan 69-year-old female past medical history diabetes hypertension no surgical history chief complaint patient states she last CC for and landed on her right side now she complain of right ankle pain right knee pain and right hip pain. Patient was not able bear weight. She denies she denies any chest pain no no shortness a breath calf pain or leg swelling. s/p mechanical fall acute mildly displaced fracture of distal fib closed Uncontrolled benign essential hypertension dm ISS Pending PT eval Consult social media manager for possible SNF placement Plan discussed with: Patient My Orders Orders - MITCHEL BENTON MD Procedure Category Date Status Time L Knee 2v Xray XY 04/02/25 Taken 16:49 Date of Service: Apr 02, 2025 Billing Provider: MITCHEL BENTON MD Common Visit Codes: [id number] INP/OBS CARE(HIGH) MITCHEL BENTON MD Apr 02, 2025 19:08
[2025-04-02] MEDS: DOCUSATE SOD 100 MG CAP PO PRN (20:42)
[2025-04-03] VITALS (8 sets, daily range): BP systolic 121–161; BP diastolic 68–88; PULSE 71–92; RESP 17–20; TEMP 97–98.7; O2SAT 94–99
--- NOTE | 2025-04-03 01:59 | DVH ---
CLINICAL INDICATION: left knee severe pain status post fall TECHNIQUE: XY L KNEE 2V XRAY Comparison: XY R KNEE 2V XRAY on DOS: 03/30/25 FINDINGS/IMPRESSION: : There is no evidence of acute fracture or dislocation. Moderate medial and lateral tibiofemoral and patellofemoral compartment narrowing with associated ost eophytosis, consistent with sequelae of osteoarthritic degenerative change. Moderate suprapatellar effusion. Soft tissues are otherwise unremarkable.
--- NOTE | 2025-04-03 20:46 | DVHPN2 ---
Subjective Seen in bed today discussed with her that we are pending SNF Reviewed: Care Plan, H&P, Labs, Medications, Previous Orders, Radiology Changes from previous H/P or p: No Changes General: Per HPI Eyes: No Pain, No Vision change, No Conjunctivae inflammation, No Eyelid inflammation, No Other, No Redness ENT: No Ear pain, No Ear discharge, No Nose pain, No Nose discharge, No Nose congestion, No Mouth pain, No Mouth swelling, No Throat pain, No Throat swelling, No Other Cardiovascular: No Chest Pain, No Palpitations, No Orthopnea, No Paroxysmal Noc. Dyspnea, No Edema, No Lt Headedness, No Other Respiratory: No Cough, No Dry, No Shortness of breath, No SOB with excertion, No Wheezing, No Hemoptysis, No Pleuritic Pain, No Sputum, No Other Gastrointestinal: No Nausea, No Vomiting, No Abdominal Pain, No Diarrhea, No Constipation, No Melena, No Hematochezia, No Other Genitourinary: No Dysuria, No Frequency, No Incontinence, No Hematuria, No Retention, No Other Musculoskeletal: other (Right hip pain and right knee pain), leg pain Skin: No Rash, No Lesions, No Jaundice, No Bruising, No Other Objective Vitals Vital Signs Date Time Temp Pulse Resp B/P (MAP) Pulse Ox O2 Delivery O2 Flow Rate FiO2 04/03/25 20:03 88 16 152/65 04/03/25 17:00 98.2 95 98.2 04/03/25 08:00 Room Air* 0 21 Intake/Output Intake and Output 04/03/25 07:00 Intake Total 1780 ml Output Total 3250 ml Balance -1470 ml Intake Oral 1780 ml Output Urine Total 3250 ml # Bowel Movements 1 General Appearance: Alert, Oriented X3, Cooperative, No acute distress HEENT: Atraumatic Cardiovascular: Regular rate, Normal S1, Normal S2 Abdomen: Normal bowel sounds, Soft Neuro: Normal speech Medications Current Medications Medications Dose Ordered Sig/Jose Route Start Time Stop Time Status Last Admin Dose Admin Sodium Chloride 1,000 ml @ 70 mls/hr [id number] IV 03/28/25 15:45 04/03/25 14:45 70 MLS/HR Ondansetron HCl 4 mg Q4HP PRN IV 03/28/25 15:45 03/29/25 20:07 4 MG Docusate Sodium 100 mg BIDPRN PRN PO 03/28/25 15:45 04/03/25 08:05 100 MG Enoxaparin Sodium 40 mg DAILY SC 03/29/25 10:00 04/03/25 08:06 40 MG Nitroglycerin 0.4 mg Q5MINP PRN SL 03/28/25 15:45 Hydralazine HCl 10 mg Q6HP PRN IV 03/29/25 01:00 04/03/25 18:02 10 MG Ceftriaxone Sodium 50 ml @ 100 mls/hr DAILY@09 IV 03/30/25 09:00 04/03/25 08:00 100 MLS/HR Hydromorphone HCl 1 mg Q2HPRN PRN IV 03/30/25 13:00 04/03/25 20:03 1 MG Morphine Sulfate 4 mg Q4HPRN PRN IV 03/30/25 13:00 Oxycodone/ Acetaminophen 2 tab Q8HP PRN PO 03/30/25 13:00 04/03/25 08:02 2 TAB Acetaminophen 650 mg Q6HP PRN PO 03/30/25 13:00 Diagnostic Test (Pha) 1 strip Q6HR 04/01/25 18:00 04/03/25 18:03 1 STRIP Insulin Human Regular Q6HR SC 04/01/25 18:00 04/03/25 18:03 9 UNITS Dextrose 50 ml UD PRN IV 04/01/25 14:45 Laboratory Results Laboratory Tests 03/29/25 06:56 Urinalysis Test 03/28/25 21:00 Urine Color Colorless (Yellow) Urine Clarity Clear (Clear) Urine pH 6.5 (5.0-9.0) Urine Specific [place] 1.020 (1.001-1.035) Urine Protein Negative (Negative) Urine Ketones Trace (Negative) H Urine Blood Negative /uL (Negative) Urine Nitrite 2+ (Negative) H Urine Bilirubin Negative (Negative) Urine Urobilinogen Normal mg/dL (Negative) Urine Leukocyte Esterase Negative /uL (Negative) Urine RBC 1 /hpf (0 - 4) Urine Microscopic WBC 1 /HPF (0-5) Urine Squamous Epithelial Cells None seen /hpf (<5) Urine Bacteria Mod /hpf (None Seen) H Urine Hyaline Casts Few /lpf (0 - 2) Urine Glucose 4+ mg/dL (Normal) H Assessment/Plan Assessment/Plan 69-year-old female past medical history diabetes hypertension no surgical history chief complaint patient states she last CC for and landed on her right side now she complain of right ankle pain right knee pain and right hip pain. Patient was not able bear weight. She denies she denies any chest pain no no shortness a breath calf pain or leg swelling. s/p mechanical fall acute mildly displaced fracture of distal fib closed Uncontrolled benign essential hypertension dm ISS PT eval>SNF pending SNF placement transfer paperwork filled Plan discussed with: Patient Date of Service: Apr 03, 2025 Billing Provider: MITCHEL BENTON MD Common Visit Codes: [id number] INP/OBS CARE(HIGH) MITCHEL BENTON MD Apr 03, 2025 20:46
[2025-04-04] VITALS (9 sets, daily range): BP systolic 132–166; BP diastolic 60–86; PULSE 72–89; RESP 16–20; TEMP 96.7–99.6; O2SAT 94–97
--- NOTE | 2025-04-04 11:42 | DVHPN2 ---
Subjective pending snif placement Reviewed: Care Plan, H&P, Labs, Medications, Previous Orders, Radiology Changes from previous H/P or p: No Changes General: Per HPI Eyes: No Pain, No Vision change, No Conjunctivae inflammation, No Eyelid inflammation, No Other, No Redness ENT: No Ear pain, No Ear discharge, No Nose pain, No Nose discharge, No Nose congestion, No Mouth pain, No Mouth swelling, No Throat pain, No Throat swelling, No Other Cardiovascular: No Chest Pain, No Palpitations, No Orthopnea, No Paroxysmal Noc. Dyspnea, No Edema, No Lt Headedness, No Other Respiratory: No Cough, No Dry, No Shortness of breath, No SOB with excertion, No Wheezing, No Hemoptysis, No Pleuritic Pain, No Sputum, No Other Gastrointestinal: No Nausea, No Vomiting, No Abdominal Pain, No Diarrhea, No Constipation, No Melena, No Hematochezia, No Other Genitourinary: No Dysuria, No Frequency, No Incontinence, No Hematuria, No Retention, No Other Musculoskeletal: other (Right hip pain and right knee pain), leg pain Skin: No Rash, No Lesions, No Jaundice, No Bruising, No Other Objective Vitals Vital Signs Date Time Temp Pulse Resp B/P (MAP) Pulse Ox O2 Delivery O2 Flow Rate FiO2 04/04/25 10:50 76 16 143/63 04/04/25 09:00 98.9 96 98.9 04/04/25 08:00 Room Air* 0 21 Intake/Output Intake and Output 04/04/25 07:00 Intake Total 440 ml Output Total 3700 ml Balance -3260 ml Intake Oral 440 ml Output Urine Total 3700 ml # Bowel Movements 1 General Appearance: Alert, Oriented X3, Cooperative, No acute distress HEENT: Atraumatic Cardiovascular: Regular rate, Normal S1, Normal S2 Abdomen: Normal bowel sounds, Soft Neuro: Normal speech Medications Current Medications Medications Dose Ordered Sig/Jose Route Start Time Stop Time Status Last Admin Dose Admin Sodium Chloride 1,000 ml @ 70 mls/hr [id number] IV 03/28/25 15:45 04/04/25 02:19 70 MLS/HR Ondansetron HCl 4 mg Q4HP PRN IV 03/28/25 15:45 03/29/25 20:07 4 MG Docusate Sodium 100 mg BIDPRN PRN PO 03/28/25 15:45 04/03/25 08:05 100 MG Enoxaparin Sodium 40 mg DAILY SC 03/29/25 10:00 04/04/25 08:08 40 MG Nitroglycerin 0.4 mg Q5MINP PRN SL 03/28/25 15:45 Hydralazine HCl 10 mg Q6HP PRN IV 03/29/25 01:00 04/03/25 18:02 10 MG Ceftriaxone Sodium 50 ml @ 100 mls/hr DAILY@09 IV 03/30/25 09:00 04/04/25 08:08 100 MLS/HR Hydromorphone HCl 1 mg Q2HPRN PRN IV 03/30/25 13:00 04/04/25 08:08 1 MG Morphine Sulfate 4 mg Q4HPRN PRN IV 03/30/25 13:00 Oxycodone/ Acetaminophen 2 tab Q8HP PRN PO 03/30/25 13:00 04/03/25 22:30 2 TAB Acetaminophen 650 mg Q6HP PRN PO 03/30/25 13:00 Diagnostic Test (Pha) 1 strip Q6HR 04/01/25 18:00 04/04/25 11:03 1 STRIP Insulin Human Regular Q6HR SC 04/01/25 18:00 04/04/25 11:07 6 UNITS Dextrose 50 ml UD PRN IV 04/01/25 14:45 Laboratory Results Laboratory Tests 03/29/25 06:56 Urinalysis Test 03/28/25 21:00 Urine Color Colorless (Yellow) Urine Clarity Clear (Clear) Urine pH 6.5 (5.0-9.0) Urine Specific [place] 1.020 (1.001-1.035) Urine Protein Negative (Negative) Urine Ketones Trace (Negative) H Urine Blood Negative /uL (Negative) Urine Nitrite 2+ (Negative) H Urine Bilirubin Negative (Negative) Urine Urobilinogen Normal mg/dL (Negative) Urine Leukocyte Esterase Negative /uL (Negative) Urine RBC 1 /hpf (0 - 4) Urine Microscopic WBC 1 /HPF (0-5) Urine Squamous Epithelial Cells None seen /hpf (<5) Urine Bacteria Mod /hpf (None Seen) H Urine Hyaline Casts Few /lpf (0 - 2) Urine Glucose 4+ mg/dL (Normal) H Assessment/Plan Assessment/Plan 69-year-old female past medical history diabetes hypertension no surgical history chief complaint patient states she last CC for and landed on her right side now she complain of right ankle pain right knee pain and right hip pain. Patient was not able bear weight. She denies she denies any chest pain no no shortness a breath calf pain or leg swelling. s/p mechanical fall acute mildly displaced fracture of distal fib closed Uncontrolled benign essential hypertension dm ISS PT eval>SNF pending SNF placement transfer paperwork filled Plan discussed with: Patient Date of Service: Apr 04, 2025 Billing Provider: ZE ONEAL MD Common Visit Codes: [id number] INP/OBS CARE(MOD) ZE ONEAL MD Apr 04, 2025 11:42
[2025-04-05] VITALS (7 sets, daily range): BP systolic 124–157; BP diastolic 46–80; PULSE 66–93; RESP 16–19; TEMP 97.4–98.3; O2SAT 93–96
[2025-04-05 06:18] LABS: Hematocrit 36.1 % (36.0-46.0); Hemoglobin 11.8 g/dL (12.2-16.2); Mean Corpuscular Hemoglobin 28.7 pg (28.0-32.0); Mean Corpuscular Volume 87.6 fL (80.0-100.0); Nucleated Red Blood Cells % 0.1 %
[2025-04-05 06:24] LABS: Calcium 9.3 mg/dL (8.7-10.4); Chloride 104 mmol/L (98-107); Potassium 3.9 mmol/L (3.5-5.1); Sodium 139 mmol/L (136-145)
[2025-04-05 06:25] LABS: Anion Gap 8 (5-15); Carbon Dioxide 27 mmol/L (20-31)
[2025-04-05 06:30] LABS: BUN/Creatinine Ratio 28.6 (10.0-20.0); Blood Urea Nitrogen 12 mg/dL (9-23)
[2025-04-05 06:34] LABS: Glucose 181 mg/dL (74-106)
--- NOTE | 2025-04-05 12:36 | DVHPN2 ---
Subjective pending snif placementJAY Reviewed: Care Plan, H&P, Labs, Medications, Previous Orders, Radiology Changes from previous H/P or p: No Changes General: Per HPI Eyes: No Pain, No Vision change, No Conjunctivae inflammation, No Eyelid inflammation, No Other, No Redness ENT: No Ear pain, No Ear discharge, No Nose pain, No Nose discharge, No Nose congestion, No Mouth pain, No Mouth swelling, No Throat pain, No Throat swelling, No Other Cardiovascular: No Chest Pain, No Palpitations, No Orthopnea, No Paroxysmal Noc. Dyspnea, No Edema, No Lt Headedness, No Other Respiratory: No Cough, No Dry, No Shortness of breath, No SOB with excertion, No Wheezing, No Hemoptysis, No Pleuritic Pain, No Sputum, No Other Gastrointestinal: No Nausea, No Vomiting, No Abdominal Pain, No Diarrhea, No Constipation, No Melena, No Hematochezia, No Other Genitourinary: No Dysuria, No Frequency, No Incontinence, No Hematuria, No Retention, No Other Musculoskeletal: other (Right hip pain and right knee pain), leg pain Skin: No Rash, No Lesions, No Jaundice, No Bruising, No Other Objective Vitals Vital Signs Date Time Temp Pulse Resp B/P (MAP) Pulse Ox O2 Delivery O2 Flow Rate FiO2 04/05/25 09:31 154/64 04/05/25 09:00 98.2 66 17 95 98.2 04/05/25 08:00 Room Air* 0 21 Intake/Output Intake and Output 04/05/25 07:00 Intake Total 3460 ml Output Total 4650 ml Balance -1190 ml Intake Oral 1660 ml IV Total 1800 ml Output Urine Total 4650 ml # Bowel Movements 6 General Appearance: Alert, Oriented X3, Cooperative, No acute distress HEENT: Atraumatic Cardiovascular: Regular rate, Normal S1, Normal S2 Abdomen: Normal bowel sounds, Soft Neuro: Normal speech Medications Current Medications Medications Dose Ordered Sig/Jose Route Start Time Stop Time Status Last Admin Dose Admin Sodium Chloride 1,000 ml @ 70 mls/hr [id number] IV 03/28/25 15:45 04/05/25 04:16 70 MLS/HR Ondansetron HCl 4 mg Q4HP PRN IV 03/28/25 15:45 03/29/25 20:07 4 MG Docusate Sodium 100 mg BIDPRN PRN PO 03/28/25 15:45 04/03/25 08:05 100 MG Enoxaparin Sodium 40 mg DAILY SC 03/29/25 10:00 04/05/25 09:30 40 MG Nitroglycerin 0.4 mg Q5MINP PRN SL 03/28/25 15:45 Hydralazine HCl 10 mg Q6HP PRN IV 03/29/25 01:00 04/05/25 09:31 10 MG Ceftriaxone Sodium 50 ml @ 100 mls/hr DAILY@09 IV 03/30/25 09:00 04/05/25 09:26 100 MLS/HR Hydromorphone HCl 1 mg Q2HPRN PRN IV 03/30/25 13:00 04/05/25 00:04 1 MG Morphine Sulfate 4 mg Q4HPRN PRN IV 03/30/25 13:00 Oxycodone/ Acetaminophen 2 tab Q8HP PRN PO 03/30/25 13:00 04/05/25 03:51 2 TAB Acetaminophen 650 mg Q6HP PRN PO 03/30/25 13:00 Diagnostic Test (Pha) 1 strip Q6HR 04/01/25 18:00 04/05/25 11:42 1 STRIP Insulin Human Regular Q6HR SC 04/01/25 18:00 04/05/25 11:42 15 UNITS Dextrose 50 ml UD PRN IV 04/01/25 14:45 Laboratory Results Laboratory Tests 04/05/25 05:50 Chemistry Test 04/05/25 05:50 Calcium Level 9.3 mg/dL (8.7-10.4) Urinalysis Test 03/28/25 21:00 Urine Color Colorless (Yellow) Urine Clarity Clear (Clear) Urine pH 6.5 (5.0-9.0) Urine Specific [place] 1.020 (1.001-1.035) Urine Protein Negative (Negative) Urine Ketones Trace (Negative) H Urine Blood Negative /uL (Negative) Urine Nitrite 2+ (Negative) H Urine Bilirubin Negative (Negative) Urine Urobilinogen Normal mg/dL (Negative) Urine Leukocyte Esterase Negative /uL (Negative) Urine RBC 1 /hpf (0 - 4) Urine Microscopic WBC 1 /HPF (0-5) Urine Squamous Epithelial Cells None seen /hpf (<5) Urine Bacteria Mod /hpf (None Seen) H Urine Hyaline Casts Few /lpf (0 - 2) Urine Glucose 4+ mg/dL (Normal) H Assessment/Plan Assessment/Plan 69-year-old female past medical history diabetes hypertension no surgical history chief complaint patient states she last CC for and landed on her right side now she complain of right ankle pain right knee pain and right hip pain. Patient was not able bear weight. She denies she denies any chest pain no no shortness a breath calf pain or leg swelling. s/p mechanical fall acute mildly displaced fracture of distal fib closed Uncontrolled benign essential hypertension dm ISS PT eval>SNF pending SNF placement transfer paperwork filled Plan discussed with: Patient My Orders Orders - ZE ONEAL MD Procedure Category Date Status Time * [employer] CONS 04/05/25 Transmitted Consult 11:27 Date of Service: Apr 05, 2025 Billing Provider: ZE ONEAL MD Common Visit Codes: [id number] INP/OBS CARE(MOD) ZE ONEAL MD Apr 05, 2025 12:36
[2025-04-06 01:00] VITALS: BP_SYST 124; BP_SYST 137; BP_DIAS 77; BP_DIAS 81; PULSE 69; PULSE 73; RESP 17; TEMP 97.6; TEMP 98.8; O2SAT 94; O2SAT 96
[2025-04-06 05:00] VITALS: BP 133/75; PULSE 64; RESP 17; TEMP 97.8; O2SAT 95
[2025-04-06 09:00] VITALS: BP 149/75; PULSE 70; RESP 17; TEMP 98; O2SAT 94
[2025-04-06 13:00] VITALS: BP 130/62; PULSE 64; RESP 17; TEMP 97.4; O2SAT 95
--- NOTE | 2025-04-06 16:33 | DVHPN2 ---
Subjective pending snif placement, NAEON. auth done. pending bed Reviewed: Care Plan, H&P, Labs, Medications, Previous Orders, Radiology Changes from previous H/P or p: No Changes General: Per HPI Eyes: No Pain, No Vision change, No Conjunctivae inflammation, No Eyelid inflammation, No Other, No Redness ENT: No Ear pain, No Ear discharge, No Nose pain, No Nose discharge, No Nose congestion, No Mouth pain, No Mouth swelling, No Throat pain, No Throat swelling, No Other Cardiovascular: No Chest Pain, No Palpitations, No Orthopnea, No Paroxysmal Noc. Dyspnea, No Edema, No Lt Headedness, No Other Respiratory: No Cough, No Dry, No Shortness of breath, No SOB with excertion, No Wheezing, No Hemoptysis, No Pleuritic Pain, No Sputum, No Other Gastrointestinal: No Nausea, No Vomiting, No Abdominal Pain, No Diarrhea, No Constipation, No Melena, No Hematochezia, No Other Genitourinary: No Dysuria, No Frequency, No Incontinence, No Hematuria, No Retention, No Other Musculoskeletal: other (Right hip pain and right knee pain), leg pain Skin: No Rash, No Lesions, No Jaundice, No Bruising, No Other Objective Vitals Vital Signs Date Time Temp Pulse Resp B/P (MAP) Pulse Ox O2 Delivery O2 Flow Rate FiO2 04/06/25 15:07 74 18 144/64 04/06/25 13:00 97.4 95 97.4 04/06/25 08:00 Room Air* 0 21 Intake/Output Intake and Output 04/06/25 07:00 Intake Total 2510 ml Output Total 5250 ml Balance -2740 ml Intake Oral 1460 ml IV Total 1050 ml Output Urine Total 5250 ml # Bowel Movements 1 General Appearance: Alert, Oriented X3, Cooperative, No acute distress HEENT: Atraumatic Cardiovascular: Regular rate, Normal S1, Normal S2 Abdomen: Normal bowel sounds, Soft Neuro: Normal speech Medications Current Medications Medications Dose Ordered Sig/Jose Route Start Time Stop Time Status Last Admin Dose Admin Sodium Chloride 1,000 ml @ 70 mls/hr [id number] IV 03/28/25 15:45 04/06/25 06:30 70 MLS/HR Ondansetron HCl 4 mg Q4HP PRN IV 03/28/25 15:45 03/29/25 20:07 4 MG Docusate Sodium 100 mg BIDPRN PRN PO 03/28/25 15:45 04/05/25 23:41 100 MG Enoxaparin Sodium 40 mg DAILY SC 03/29/25 10:00 04/06/25 10:17 40 MG Nitroglycerin 0.4 mg Q5MINP PRN SL 03/28/25 15:45 Hydralazine HCl 10 mg Q6HP PRN IV 03/29/25 01:00 04/05/25 09:31 10 MG Ceftriaxone Sodium 50 ml @ 100 mls/hr DAILY@09 IV 03/30/25 09:00 04/06/25 10:14 100 MLS/HR Hydromorphone HCl 1 mg Q2HPRN PRN IV 03/30/25 13:00 04/06/25 14:37 1 MG Morphine Sulfate 4 mg Q4HPRN PRN IV 03/30/25 13:00 Oxycodone/ Acetaminophen 2 tab Q8HP PRN PO 03/30/25 13:00 04/05/25 23:35 2 TAB Acetaminophen 650 mg Q6HP PRN PO 03/30/25 13:00 Diagnostic Test (Pha) 1 strip Q6HR 04/01/25 18:00 04/06/25 12:00 1 STRIP Insulin Human Regular Q6HR SC 04/01/25 18:00 04/06/25 12:44 6 UNITS Dextrose 50 ml UD PRN IV 04/01/25 14:45 Laboratory Results Laboratory Tests 04/05/25 05:50 Urinalysis Test 03/28/25 21:00 Urine Color Colorless (Yellow) Urine Clarity Clear (Clear) Urine pH 6.5 (5.0-9.0) Urine Specific [place] 1.020 (1.001-1.035) Urine Protein Negative (Negative) Urine Ketones Trace (Negative) H Urine Blood Negative /uL (Negative) Urine Nitrite 2+ (Negative) H Urine Bilirubin Negative (Negative) Urine Urobilinogen Normal mg/dL (Negative) Urine Leukocyte Esterase Negative /uL (Negative) Urine RBC 1 /hpf (0 - 4) Urine Microscopic WBC 1 /HPF (0-5) Urine Squamous Epithelial Cells None seen /hpf (<5) Urine Bacteria Mod /hpf (None Seen) H Urine Hyaline Casts Few /lpf (0 - 2) Urine Glucose 4+ mg/dL (Normal) H Assessment/Plan Assessment/Plan 69-year-old female past medical history diabetes hypertension no surgical history chief complaint patient states she last CC for and landed on her right side now she complain of right ankle pain right knee pain and right hip pain. Patient was not able bear weight. She denies she denies any chest pain no no shortness a breath calf pain or leg swelling. s/p mechanical fall acute mildly displaced fracture of distal fib closed Uncontrolled benign essential hypertension dm ISS PT eval>SNF pending SNF placement transfer paperwork filled Plan discussed with: Patient Date of Service: Apr 06, 2025 Billing Provider: ZE ONEAL MD Common Visit Codes: [id number] INP/OBS CARE(MOD) ZE ONEAL MD Apr 06, 2025 16:33
[2025-04-06 17:00] VITALS: BP 154/67; PULSE 74; RESP 18; TEMP 98.2; O2SAT 95
[2025-04-06 21:00] VITALS: BP 146/82; PULSE 74; RESP 18; TEMP 97.7; O2SAT 94
[2025-04-07 01:26] VITALS: BP 138/79; PULSE 81; RESP 17; TEMP 97.7; O2SAT 95
[2025-04-07 05:26] VITALS: BP 137/71; PULSE 60; RESP 18; TEMP 97.8; O2SAT 95
[2025-04-07 09:00] VITALS: BP 130/71; PULSE 58; RESP 16; TEMP 97.7; O2SAT 99
--- NOTE | 2025-04-07 12:27 | DVHDS2 ---
Discharge Summary Date of Admission Mar 28, 2025 at 15:39 Date of Discharge: Apr 07, 2025 Labs/Diagnostic Data: Laboratory Results Test 04/07/25 11:14 04/05/25 05:50 03/29/25 06:56 03/28/25 21:00 POC Glucose 299 mg/dl (70-106) White Blood Count 7.0 10^3/uL (4.4-10.8) Red Blood Count 4.12 10^6/uL (4.0-5.20) Hemoglobin 11.8 g/dL (12.2-16.2) Hematocrit 36.1 % (36.0-46.0) Mean Corpuscular Volume 87.6 fL (80.0-100.0) Mean Corpuscular Hemoglobin 28.7 pg (28.0-32.0) Mean Corpuscular Hemoglobin Concent 32.7 g/dL (32.0-36.0) Red Cell Distribution Width 13.4 % (11.8-14.3) Platelet Count 383 10^3/uL (140-450) Mean Platelet Volume 8.6 fL (6.9-10.8) Neutrophils (%) (Auto) 58.0 % (37.0-80.0) Lymphocytes (%) (Auto) 25.0 % (10.0-50.0) Monocytes (%) (Auto) 11.9 % (0.0-12.0) Eosinophils (%) (Auto) 4.1 % (0.0-7.0) Basophils (%) (Auto) 1.0 % (0.0-2.0) Neutrophils # (Auto) 4.0 10 ^3/uL (1.6-8.6) Lymphocytes # (Auto) 1.7 10 ^3/uL (0.4-5.4) Monocytes # (Auto) 0.8 10 ^3/uL (0-1.3) Eosinophils # (Auto) 0.3 10 ^3/uL (0-0.8) Basophils # (Auto) 0.1 10 ^3/uL (0-0.2) Nucleated Red Blood Cells 0.1 % Sodium Level 139 mmol/L (136-145) Potassium Level 3.9 mmol/L (3.5-5.1) Chloride Level 104 mmol/L (98-107) Carbon Dioxide Level 27 mmol/L (20-31) Anion Gap 8 (5-15) Blood Urea Nitrogen 12 mg/dL (9-23) Creatinine 0.42 mg/dL (0.550-1.02) Glomerular Filtration Rate Calc 107 mL/min (>90) BUN/Creatinine Ratio 28.6 (10.0-20.0) Serum Glucose 181 mg/dL (74-106) Calcium Level 9.3 mg/dL (8.7-10.4) Total Bilirubin 0.6 mg/dL (0.2-1.0) Aspartate Amino Transferase (AST) 15 U/L (<34) Alanine Aminotransferase (ALT) 20 U/L (7-40) Alkaline Phosphatase 171 U/L (46-116) Total Protein 6.4 g/dL (5.7-8.2) Albumin 3.8 g/dL (3.2-4.8) Hepatitis B Surface Antigen Negative (Negative) Hepatitis C Antibody Negative (Negative) Urine Color Colorless (Yellow) Urine Clarity Clear (Clear) Urine pH 6.5 (5.0-9.0) Urine Specific [place] 1.020 (1.001-1.035) Urine Protein Negative (Negative) Urine Ketones Trace (Negative) Urine Blood Negative /uL (Negative) Urine Nitrite 2+ (Negative) Urine Bilirubin Negative (Negative) Urine Urobilinogen Normal mg/dL (Negative) Urine Leukocyte Esterase Negative /uL (Negative) Urine RBC 1 /hpf (0 - 4) Urine Microscopic WBC 1 /HPF (0-5) Urine Squamous Epithelial Cells None seen /hpf (<5) Urine Bacteria Mod /hpf (None Seen) Urine Hyaline Casts Few /lpf (0 - 2) Urine Glucose 4+ mg/dL (Normal) Other Laboratory Tests 04/05/25 05:50 Brief Hx & Hospital Course: 69-year-old female past medical history diabetes hypertension no surgical history chief complaint patient states she last CC for and landed on her right side now she complain of right ankle pain right knee pain and right hip pain. Patient was not able bear weight. She denies she denies any chest pain no no shortness a breath calf pain or leg swelling. seen by ortho, distal fib closed fx for conservative management and PT. working with PT inhouse, stable to dc to SNF for rehab. f/u with ortho in 1 week Condition at Discharge: Good Final Diagnosis/Problems List s/p mechanical fall acute mildly displaced fracture of distal fib closed for conservative mgmt Uncontrolled benign essential hypertension dm Discharge Disposition: Residential Facility Discharge Instruct/Medications Diet: Consistent carbohydrate, Cardiac 2g Na,low cholest Activity: No Restrictions, As Tolerated Scheduled Amlodipine Besylate (Amlodipine Besylate), 10 MG PO DAILY, (Reported) Ibuprofen (Ibuprofen), 800 MG PO Q8HP, (Reported) Indapamide (Indapamide), 2.5 MG PO AC, (Reported) Lisinopril (Lisinopril), 10 MG PO DAILY, (Reported) Miscellaneous Medications Tirzepatide (Mounjaro), 5 MG SC, (Reported) Discharge Statement: "Patient was advised to return to the ER or call 911 if any headaches, dizziness, shortness of breath, chest pain, abdominal pain, bleeding, fevers, or worsening of medical condition. Patient was counseled about treatment plan, medications, possible side effects, patientverbalized understanding. All questions were answered to the best of my ability. This discharge took greater then 30 minutes in planning, reviewing documentation, counseling the patient, and discussing with other team members." ASSESSMENT ASSESSMENT Assessment ankle fx Date of Service: Apr 07, 2025 Billing Provider: ZE ONEAL MD Common Visit Codes: [id number] DISCH DAY >30min ZE ONEAL MD Apr 07, 2025 12:27
[2025-04-07 13:00] VITALS: BP 162/83; PULSE 66; RESP 17; TEMP 97.5; O2SAT 96
[2025-04-07 17:00] VITALS: BP 126/68; PULSE 83; RESP 19; TEMP 97.2; O2SAT 95
--- NOTE | 2025-04-07 20:55 | DVHPN2 ---
Reviewed: Care Plan, H&P, Labs, Medications, Previous Orders, Radiology Changes from previous H/P or p: No Changes General: Per HPI Eyes: No Pain, No Vision change, No Conjunctivae inflammation, No Eyelid inflammation, No Other, No Redness ENT: No Ear pain, No Ear discharge, No Nose pain, No Nose discharge, No Nose congestion, No Mouth pain, No Mouth swelling, No Throat pain, No Throat swelling, No Other Cardiovascular: No Chest Pain, No Palpitations, No Orthopnea, No Paroxysmal Noc. Dyspnea, No Edema, No Lt Headedness, No Other Respiratory: No Cough, No Dry, No Shortness of breath, No SOB with excertion, No Wheezing, No Hemoptysis, No Pleuritic Pain, No Sputum, No Other Gastrointestinal: No Nausea, No Vomiting, No Abdominal Pain, No Diarrhea, No Constipation, No Melena, No Hematochezia, No Other Genitourinary: No Dysuria, No Frequency, No Incontinence, No Hematuria, No Retention, No Other Musculoskeletal: other (Right hip pain and right knee pain), leg pain Skin: No Rash, No Lesions, No Jaundice, No Bruising, No Other Objective Vitals Vital Signs Date Time Temp Pulse Resp B/P (MAP) Pulse Ox O2 Delivery O2 Flow Rate FiO2 04/07/25 20:00 Room Air* 0 21 04/07/25 17:00 97.2 83 19 126/68 (87) 95 97.2 Intake/Output Intake and Output 04/07/25 07:00 Intake Total 2150 ml Output Total 2950 ml Balance -800 ml Intake Oral 2100 ml IV Total 50 ml Output Urine Total 2950 ml General Appearance: Alert, Oriented X3, Cooperative, No acute distress HEENT: Atraumatic Cardiovascular: Regular rate, Normal S1, Normal S2 Abdomen: Normal bowel sounds, Soft Neuro: Normal speech Medications Current Medications Medications Dose Ordered Sig/Jose Route Start Time Stop Time Status Last Admin Dose Admin Sodium Chloride 1,000 ml @ 70 mls/hr [id number] IV 03/28/25 15:45 04/07/25 04:29 70 MLS/HR Ondansetron HCl 4 mg Q4HP PRN IV 03/28/25 15:45 03/29/25 20:07 4 MG Docusate Sodium 100 mg BIDPRN PRN PO 03/28/25 15:45 04/07/25 09:16 100 MG Enoxaparin Sodium 40 mg DAILY SC 03/29/25 10:00 04/07/25 09:17 40 MG Nitroglycerin 0.4 mg Q5MINP PRN SL 03/28/25 15:45 Hydralazine HCl 10 mg Q6HP PRN IV 03/29/25 01:00 04/07/25 15:10 10 MG Ceftriaxone Sodium 50 ml @ 100 mls/hr DAILY@09 IV 03/30/25 09:00 04/07/25 09:16 100 MLS/HR Hydromorphone HCl 1 mg Q2HPRN PRN IV 03/30/25 13:00 04/07/25 12:11 1 MG Morphine Sulfate 4 mg Q4HPRN PRN IV 03/30/25 13:00 Oxycodone/ Acetaminophen 2 tab Q8HP PRN PO 03/30/25 13:00 04/07/25 19:55 2 TAB Acetaminophen 650 mg Q6HP PRN PO 03/30/25 13:00 Diagnostic Test (Pha) 1 strip Q6HR 04/01/25 18:00 04/07/25 18:11 1 STRIP Insulin Human Regular Q6HR SC 04/01/25 18:00 04/07/25 12:16 9 UNITS Dextrose 50 ml UD PRN IV 04/01/25 14:45 Laboratory Results Laboratory Tests 04/05/25 05:50 Urinalysis Test 03/28/25 21:00 Urine Color Colorless (Yellow) Urine Clarity Clear (Clear) Urine pH 6.5 (5.0-9.0) Urine Specific [place] 1.020 (1.001-1.035) Urine Protein Negative (Negative) Urine Ketones Trace (Negative) H Urine Blood Negative /uL (Negative) Urine Nitrite 2+ (Negative) H Urine Bilirubin Negative (Negative) Urine Urobilinogen Normal mg/dL (Negative) Urine Leukocyte Esterase Negative /uL (Negative) Urine RBC 1 /hpf (0 - 4) Urine Microscopic WBC 1 /HPF (0-5) Urine Squamous Epithelial Cells None seen /hpf (<5) Urine Bacteria Mod /hpf (None Seen) H Urine Hyaline Casts Few /lpf (0 - 2) Urine Glucose 4+ mg/dL (Normal) H Assessment/Plan Assessment/Plan 69-year-old female past medical history diabetes hypertension no surgical history chief complaint patient states she last CC for and landed on her right side now she complain of right ankle pain right knee pain and right hip pain. Patient was not able bear weight. She denies she denies any chest pain no no shortness a breath calf pain or leg swelling. s/p mechanical fall acute mildly displaced fracture of distal fib closed Uncontrolled benign essential hypertension dm pending PT eval and SNF Plan discussed with: Patient Date of Service: Apr 01, 2025 Billing Provider: CHI CAMPUZANO DO Common Visit Codes: [id number] INP/OBS CARE(HIGH) CHI CAMPUZANO DO Apr 07, 2025 20:55
[2025-04-07 21:00] VITALS: BP_SYST 142; BP_SYST 143; BP_DIAS 71; BP_DIAS 73; PULSE 69; PULSE 80; RESP 18; TEMP 98.4; TEMP 98.9; O2SAT 92; O2SAT 95
[2025-04-08] VITALS (7 sets, daily range): BP systolic 127–168; BP diastolic 58–82; PULSE 62–83; RESP 16–19; TEMP 97.2–98.9; O2SAT 92–97
[2025-04-08] MEDS: OXYCODONE W/ ACETAMINOPHEN 5/325MG TABLET PO PRN (20:36)
--- NOTE | 2025-04-08 22:33 | DVHPN2 ---
Subjective snif placement, [facility] bed available tomorrow. Reviewed: Care Plan, H&P, Labs, Medications, Previous Orders, Radiology Changes from previous H/P or p: No Changes General: Per HPI Eyes: No Pain, No Vision change, No Conjunctivae inflammation, No Eyelid inflammation, No Other, No Redness ENT: No Ear pain, No Ear discharge, No Nose pain, No Nose discharge, No Nose congestion, No Mouth pain, No Mouth swelling, No Throat pain, No Throat swelling, No Other Cardiovascular: No Chest Pain, No Palpitations, No Orthopnea, No Paroxysmal Noc. Dyspnea, No Edema, No Lt Headedness, No Other Respiratory: No Cough, No Dry, No Shortness of breath, No SOB with excertion, No Wheezing, No Hemoptysis, No Pleuritic Pain, No Sputum, No Other Gastrointestinal: No Nausea, No Vomiting, No Abdominal Pain, No Diarrhea, No Constipation, No Melena, No Hematochezia, No Other Genitourinary: No Dysuria, No Frequency, No Incontinence, No Hematuria, No Retention, No Other Musculoskeletal: other (Right hip pain and right knee pain), leg pain Skin: No Rash, No Lesions, No Jaundice, No Bruising, No Other Objective Vitals Vital Signs Date Time Temp Pulse Resp B/P (MAP) Pulse Ox O2 Delivery O2 Flow Rate FiO2 04/08/25 21:00 98.9 83 18 142/76 (98) 94 98.9 04/08/25 20:00 Room Air* 0 21 Intake/Output Intake and Output 04/08/25 07:00 Intake Total 3700 ml Output Total 5200 ml Balance -1500 ml Intake Oral 2950 ml IV Total 750 ml Output Urine Total 5200 ml General Appearance: Alert, Oriented X3, Cooperative, No acute distress HEENT: Atraumatic Cardiovascular: Regular rate, Normal S1, Normal S2 Abdomen: Normal bowel sounds, Soft Neuro: Normal speech Medications Current Medications Medications Dose Ordered Sig/Jose Route Start Time Stop Time Status Last Admin Dose Admin Sodium Chloride 1,000 ml @ 70 mls/hr [id number] IV 03/28/25 15:45 04/08/25 09:40 70 MLS/HR Ondansetron HCl 4 mg Q4HP PRN IV 03/28/25 15:45 03/29/25 20:07 4 MG Docusate Sodium 100 mg BIDPRN PRN PO 03/28/25 15:45 04/07/25 09:16 100 MG Enoxaparin Sodium 40 mg DAILY SC 03/29/25 10:00 04/08/25 09:39 40 MG Nitroglycerin 0.4 mg Q5MINP PRN SL 03/28/25 15:45 Hydralazine HCl 10 mg Q6HP PRN IV 03/29/25 01:00 04/07/25 15:10 10 MG Ceftriaxone Sodium 50 ml @ 100 mls/hr DAILY@09 IV 03/30/25 09:00 04/08/25 09:40 100 MLS/HR Acetaminophen 650 mg Q6HP PRN PO 03/30/25 13:00 Diagnostic Test (Pha) 1 strip Q6HR 04/01/25 18:00 04/08/25 17:31 1 STRIP Insulin Human Regular Q6HR SC 04/01/25 18:00 04/08/25 17:32 6 UNITS Dextrose 50 ml UD PRN IV 04/01/25 14:45 Oxycodone/ Acetaminophen 2 tab Q6HP PRN PO 04/08/25 20:00 04/08/25 20:36 2 TAB Laboratory Results Laboratory Tests 04/05/25 05:50 Urinalysis Test 03/28/25 21:00 Urine Color Colorless (Yellow) Urine Clarity Clear (Clear) Urine pH 6.5 (5.0-9.0) Urine Specific [place] 1.020 (1.001-1.035) Urine Protein Negative (Negative) Urine Ketones Trace (Negative) H Urine Blood Negative /uL (Negative) Urine Nitrite 2+ (Negative) H Urine Bilirubin Negative (Negative) Urine Urobilinogen Normal mg/dL (Negative) Urine Leukocyte Esterase Negative /uL (Negative) Urine RBC 1 /hpf (0 - 4) Urine Microscopic WBC 1 /HPF (0-5) Urine Squamous Epithelial Cells None seen /hpf (<5) Urine Bacteria Mod /hpf (None Seen) H Urine Hyaline Casts Few /lpf (0 - 2) Urine Glucose 4+ mg/dL (Normal) H Assessment/Plan Assessment/Plan 69-year-old female past medical history diabetes hypertension no surgical history chief complaint patient states she last CC for and landed on her right side now she complain of right ankle pain right knee pain and right hip pain. Patient was not able bear weight. She denies she denies any chest pain no no shortness a breath calf pain or leg swelling. s/p mechanical fall acute mildly displaced fracture of distal fib closed Uncontrolled benign essential hypertension dm ISS PT eval>SNF pending SNF placement transfer paperwork filled Plan discussed with: Patient Date of Service: Apr 08, 2025 Billing Provider: ZE ONEAL MD Common Visit Codes: [id number] INP/OBS CARE(MOD) ZE ONEAL MD Apr 08, 2025 22:32
[2025-04-09 05:00] VITALS: BP 150/82; PULSE 62; RESP 20; TEMP 97.5; O2SAT 97
[2025-04-09 09:00] VITALS: BP 167/73; PULSE 61; RESP 12; TEMP 97.6; O2SAT 94
[2025-04-09 12:32] VITALS: BP 152/67; PULSE 68; RESP 14; TEMP 97.3; O2SAT 96
--- NOTE | 2025-04-09 16:05 | DVHPN2 ---
Subjective going to [facility] today 5[facility] transport Reviewed: Care Plan, H&P, Labs, Medications, Previous Orders, Radiology Changes from previous H/P or p: No Changes General: Per HPI Eyes: No Pain, No Vision change, No Conjunctivae inflammation, No Eyelid inflammation, No Other, No Redness ENT: No Ear pain, No Ear discharge, No Nose pain, No Nose discharge, No Nose congestion, No Mouth pain, No Mouth swelling, No Throat pain, No Throat swelling, No Other Cardiovascular: No Chest Pain, No Palpitations, No Orthopnea, No Paroxysmal Noc. Dyspnea, No Edema, No Lt Headedness, No Other Respiratory: No Cough, No Dry, No Shortness of breath, No SOB with excertion, No Wheezing, No Hemoptysis, No Pleuritic Pain, No Sputum, No Other Gastrointestinal: No Nausea, No Vomiting, No Abdominal Pain, No Diarrhea, No Constipation, No Melena, No Hematochezia, No Other Genitourinary: No Dysuria, No Frequency, No Incontinence, No Hematuria, No Retention, No Other Musculoskeletal: other, leg pain Skin: No Rash, No Lesions, No Jaundice, No Bruising, No Other Objective Vitals Vital Signs Date Time Temp Pulse Resp B/P (MAP) Pulse Ox O2 Delivery O2 Flow Rate FiO2 04/09/25 15:50 173/68 04/09/25 12:32 97.3 68 14 96 97.3 04/09/25 08:00 Room Air* 0 21 Intake/Output Intake and Output 04/09/25 07:00 Intake Total 3120 ml Output Total 3525 ml Balance -405 ml Intake Oral 1940 ml IV Total 1180 ml Output Urine Total 3525 ml # Bowel Movements 1 General Appearance: Alert, Oriented X3, Cooperative, No acute distress HEENT: Atraumatic Cardiovascular: Regular rate, Normal S1, Normal S2 Abdomen: Normal bowel sounds, Soft Neuro: Normal speech Medications Current Medications Medications Dose Ordered Sig/Jose Route Start Time Stop Time Status Last Admin Dose Admin Sodium Chloride 1,000 ml @ 70 mls/hr [id number] IV 03/28/25 15:45 04/09/25 15:52 70 MLS/HR Ondansetron HCl 4 mg Q4HP PRN IV 03/28/25 15:45 03/29/25 20:07 4 MG Docusate Sodium 100 mg BIDPRN PRN PO 03/28/25 15:45 04/07/25 09:16 100 MG Nitroglycerin 0.4 mg Q5MINP PRN SL 03/28/25 15:45 Hydralazine HCl 10 mg Q6HP PRN IV 03/29/25 01:00 04/09/25 15:50 10 MG Ceftriaxone Sodium 50 ml @ 100 mls/hr DAILY@09 IV 03/30/25 09:00 04/09/25 10:45 100 MLS/HR Acetaminophen 650 mg Q6HP PRN PO 03/30/25 13:00 Diagnostic Test (Pha) 1 strip Q6HR 04/01/25 18:00 04/09/25 13:18 1 STRIP Insulin Human Regular Q6HR SC 04/01/25 18:00 04/09/25 13:21 6 UNITS Dextrose 50 ml UD PRN IV 04/01/25 14:45 Oxycodone/ Acetaminophen 2 tab Q6HP PRN PO 04/08/25 20:00 04/09/25 10:43 2 TAB Laboratory Results Laboratory Tests 04/05/25 05:50 Urinalysis Test 03/28/25 21:00 Urine Color Colorless (Yellow) Urine Clarity Clear (Clear) Urine pH 6.5 (5.0-9.0) Urine Specific [place] 1.020 (1.001-1.035) Urine Protein Negative (Negative) Urine Ketones Trace (Negative) H Urine Blood Negative /uL (Negative) Urine Nitrite 2+ (Negative) H Urine Bilirubin Negative (Negative) Urine Urobilinogen Normal mg/dL (Negative) Urine Leukocyte Esterase Negative /uL (Negative) Urine RBC 1 /hpf (0 - 4) Urine Microscopic WBC 1 /HPF (0-5) Urine Squamous Epithelial Cells None seen /hpf (<5) Urine Bacteria Mod /hpf (None Seen) H Urine Hyaline Casts Few /lpf (0 - 2) Urine Glucose 4+ mg/dL (Normal) H Assessment/Plan Assessment/Plan 69-year-old female past medical history diabetes hypertension no surgical history chief complaint patient states she last CC for and landed on her right side now she complain of right ankle pain right knee pain and right hip pain. Patient was not able bear weight. She denies she denies any chest pain no no shortness a breath calf pain or leg swelling. s/p mechanical fall acute mildly displaced fracture of distal fib closed Uncontrolled benign essential hypertension dm ISS PT eval>SNF pending SNF placement transfer paperwork filled Plan discussed with: Patient Date of Service: Apr 09, 2025 Billing Provider: ZE ONEAL MD Common Visit Codes: 79611-OAY/OBS DISCH DAY >30min ZE ONEAL MD Apr 09, 2025 16:05
[2025-04-09 16:51] VITALS: BP 173/68; TEMP 36.3
== END 2025-04-09 17:25 | DRG 342 ==
LOC: EDUNIT# 10:23 → EDBD 10:23 → ER 10:23 → OVERFLOW 15:39 → EAST 23:11
PROVIDERS: ADMIT Student in an Organized Health Care Education/Training Program; ATTEND Student in an Organized Health Care Education/Training Program
DX: S82.831A Other fracture of upper and lower end of right fibula, initial encounter for closed fracture (principal); R65.10 Systemic inflammatory response syndrome (SIRS) of non-infectious origin without acute organ dysfunction; I10 Essential (primary) hypertension; Z83.3 Family history of diabetes mellitus; Z82.49 Family history of ischemic heart disease and other diseases of the circulatory system; Z74.01 Bed confinement status; X50.1XXA Overexertion from prolonged static or awkward postures, initial encounter; W18.39XA Other fall on same level, initial encounter; Y93.89 Activity, other specified; Y92.89 Other specified places as the place of occurrence of the external cause; Y99.8 Other external cause status
CPT/HCPCS: 36415; 73502; 73560; 73600; 80048; 80053; 81001; 82962; 85025; 86803; 87340; 96361; 96374; 97110; 97116; 97163; 97530; G0378; J1815; J2405